=== PATIENT | female | born 1985 | race Caucasian/White ===

== ENCOUNTER 2020-09-26 23:16 | Emergency (ER) | payer OTHER ==
[2020-09-27 00:54] LABS: BASOPHIL 0.3 % (0-2); EOSINOPHIL 0.3 % (0-5); HCT 36.7 % (37.0-47.0); HGB 13.5 g/dl (12.5-16.0); LYMPHOCYTE 7.9 % (15-48); MCH 33.8 pg (25.0-31.0); MCHC 36.8 g/dL (32.0-36.0); MCV 91.8 fL (78.0-100.0); MONOCYTE 8.9 % (0-12); MPV 9.8 fL (6.0-9.5); NEUTROPHIL 82.3 % (41-80); NRBC 0; PLT 190 K/uL (150-400); RDW 11.6 % (11.5-14.0); WBC 11.2 K/uL (4.0-10.5)
[2020-09-27 01:10] LABS: BILIRUBIN NEGATIVE (NEGATIVE); BLOOD 2+ Ery/uL (NEGATIVE); CLARITY CLEAR (CLEAR); COLOR YELLOW (YELLOW); GLUCOSE (U) NORMAL (NORMAL); LEUKOCYTES TRACE Leu/uL (NEGATIVE); NITRITE NEGATIVE (NEGATIVE); PROTEIN TRACE (LOW) mg/dL (NEGATIVE); UROBILINOGEN 0.2 mg/dL (0.2-1.0)
[2020-09-27 01:14] LABS: ALBUMIN 3.6 g/dL (3.4-5.0); BILIRUBIN - TOTAL 0.7 mg/dL (0.2-1.0); BUN/CREAT RATIO (CALC) 7.1 RATIO; CREATININE 0.7 mg/dL (0.51-0.95); GLOBULIN (CALCULATION) 3.2 g/dL; TOTAL PROTEIN 6.8 g/dL (6.4-8.2)
[2020-09-27 01:15] LABS: URINARY RBC RARE
[2020-09-27 01:16] LABS: BACTERIA 2+
[2020-09-27 01:21] LABS: LACTIC ACID 0.7 mmol/L (0.4-1.9)
[2020-09-27 01:44] LABS: CORONAVIRUS 2019 SARS-COV-2 NEGATIVE (NEGATIVE); INFLUENZA A NAA NEGATIVE (NEGATIVE)
[2020-09-27] MEDS ORDERED: BACTRIM DS TAB1 EACH PO (03:04)
[2020-09-27] MEDS ORDERED: IBUPROFEN800 MG PO (03:04)
[2020-09-27] MEDS ORDERED: ONDANSETRON ODT4 MG SL (03:04)
== END 2020-09-27 03:13 | disposition home or self-care (01) ==
LOC: FER 23:16
PROVIDERS: Emergency Medicine Emergency Medical Services
DX: N30.00 Acute cystitis without hematuria (principal); R06.02 Shortness of breath; F17.210 Nicotine dependence, cigarettes, uncomplicated; Z88.1 Allergy status to other antibiotic agents; Z20.822 Contact with and (suspected) exposure to COVID-19
CPT/HCPCS: 36415; 71045; 80053; 81001; 83605; 85025; 87076; 87088; 87186; J0696; J1885; J2405; J7030; Q9967; U0002